=== PATIENT | female | born 1975 | race Caucasian/White ===

== ENCOUNTER → 2016-10-31 | Outpatient (CLI) | payer BC ==
--- NOTE | 2016-11-01 07:48 | DI ---
MRI CERVICAL SPINE SCAN, 10/31/2016 2:35 PM: Clinical History: Right arm pain. Previous Exam: None. Sequences: Sagittal T1and T2 weighted. Axial T2 PLUS and FE 3D DUAL. Coronal T1 scans through the upp er cervical spine. The vertebral bodies are of normal height and size. The disc spaces are of normal height. The cervica l disc spaces from C2-3 through C5-6 show desiccation change. The cervical cord and cerebellar tonsil s are normal. C2-3 has a very mild left anterolateral disc bulge without herniation. There is no kirsten l or neural foraminal stenosis. C3-4 and C4-5 disc spaces are normal. C5-6 has a very minimal left la teral disc bulge without herniation. There is no canal or neural foraminal stenosis. The disc spaces from C6-7 through T3-4 are normal. Readin. There are very mild left-sided bulging but not herniated discs at C2-3 and C5-6 without canal or neural foraminal stenosis. 2. C3-4, C4-5, and C6-7 through T3-4 are normal.
== END ==
LOC: MRI 14:27
PROVIDERS: ATTEND Chiropractor
DX: M79.601 Pain in right arm (principal); M47.812 Spondylosis without myelopathy or radiculopathy, cervical region
CPT/HCPCS: 72141